=== PATIENT | female | born 1970 | race Caucasian/White ===

== ENCOUNTER → 2018-07-07 09:43 | Outpatient (CLI) | payer OTHER, SELFPAY ==
--- NOTE | 2018-07-07 09:45 | DI.MRI.S_ITS ---
PROCEDURE: MRFOOT LT WO CON INDICATIONS: LEFT FOOT PAIN TECHNIQUE: Noncontrast sagittal T1 spin echo and T2 fast spin echo with fat saturation, long-axis T1 spin echo and T2 fast spin echo with fat saturation, short-axis T1 spin echo and T2 fast spin echo with fat saturation through the forefoot. COMPARISON: [facility], MR, FOOT WITHOUT CONTRAST, 08/17/2013, 20:52. FINDINGS: Image quality: Excellent. Bones and joints: No bone marrow contusions or metatarsal stress fractures. The sesamoid bones appear in expected positions, without internal edema. The previously seen borderline marrow edema involving the lateral hallux sesamoid appears resolved. No metatarsophalangeal joint degeneration. There is first MTP joint effusion, nonspecific No marrow signal changes to suggest erosions. No intraosseous lesions. Soft tissues: The visualized plantar foot muscles demonstrate normal signal and bulk. Visualized flexor and extensor tendons appear intact, without tenosynovitis. The distal insertions of the peroneus brevis and longus tendons appear intact. The principal Lisfranc ligament appears intact. Fluid between the third and fourth metatarsal heads raising possibility of mild intermetatarsal bursitis. There is also trace fluid between the second and third metatarsals heads. Sagittal images demonstrate no evidence for plantar plate tears. IMPRESSION: First MTP joint effusion, possibly slightly increased since prior study. Minimal degenerative marrow signal changes, although recommend correlation with foot radiographs. Possible mild intermetatarsal bursitis between the third and fourth metatarsal heads although recommend close clinical correlation to point tenderness. Trace fluid between the second and third metatarsal heads. Dictated by: Allan Durant M.D. on 07/07/2018 at 11:01 Approved by: Allan Durant M.D. on 07/07/2018 at 11:11
== END ==
PROVIDERS: Visit Provider General Practice
DX: M79.672 Pain in left foot (principal); M25.475 Effusion, left foot
CPT/HCPCS: 73718

== ENCOUNTER 2018-09-14 08:54 | Emergency (ER) | payer OTHER, SELFPAY ==
[2018-09-14 08:59] VITALS: BP 120/75; PULSE 79; RESP 16; TEMP 36.8; O2SAT 95; BMI 33.1
--- NOTE | 2018-09-14 09:03 | DI.RAD.S_ITS ---
PROCEDURE: XR ANKLE LT MIN 3V INDICATIONS: injury pain swelling. TECHNIQUE: 3 views of the ankle were acquired. COMPARISON: None. FINDINGS: Bones: No fractures or dislocations. Ankle mortise is normally aligned. No suspicious bony lesions. Soft tissues: No tibiotalar joint effusion. Achilles tendon appears normal. Lateral soft tissue swelling is noted and ligamentous injury cannot be excluded. IMPRESSION: No fracture. No osseous lesion. If symptoms and/or clinical suspicion for pathology persists, further assessment with repeat radiographs (7-10 days) or advanced imaging (e.g. CT, MRI or bone scan) may be helpful. Dictated by: Trina Khan MD, PhD on 09/14/2018 at 9:18 Approved by: Trina Khan MD, PhD on 09/14/2018 at 9:19
--- NOTE | 2018-09-14 09:59 | ED.LOWEXIN ---
HPI - Extremity Injury (Lower) General Chief Complaint: Extremity Injury, Lower Stated Complaint: right foot pain, glf Time Seen by Provider: 09/14/18 09:32 Source: patient and EMS Mode of arrival: EMS Limitations: no limitations History of Present Illness HPI Narrative: Patient is a 48-year-old female who presents with left ankle pain. She says she slipped on a curb is with yesterday. She has been unable to walk on it since then overall pain has gotten worse. She has pain radiating up into her knee. She actually mostly fell on her right knee. No other injuries. She denies numbness or tingling. 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) Review of Systems Review of Systems GENERAL: Denies chills,fever HEENT: Denies throat pain RESPIRATORY: Denies dyspnea, cough, wheezing CARDIOVASCULAR: Denies chest pain, palpitations GASTROINTESTINAL: Denies nausea, vomiting MUSCULOSKELETAL: SKIN: No rash, no laceration, no pruritus NEUROLOGIC: Denies weakness, dizziness, headache, numbness 8 point review of systems is negative except for those stated above and HPI PFSH Medical History (Updated 09/14/18 @ 10:41 by Vero Taylor DO) Anxiety (Chronic 2012) Chronic back pain (Chronic 2009) Depression (Chronic 2012) Fibromyalgia (Chronic 2012) Foot pain (Chronic 2012) Migraines (Chronic ~1987) Osteoarthritis (Chronic 2012) Pituitary adenoma (Chronic 1996) Rheumatoid arthritis (Chronic 2012) Shoulder pain (Chronic 2009) Anemia (Resolved 2002) Chicken pox (Resolved 1979) Hemorrhoids (Resolved 2007) Measles (Resolved 1984) Surgical History (Updated 07/11/18 @ 15:18 by Yu Lugo) Anesthesia (Resolved) History of elbow surgery (Resolved 2012) History of elbow surgery (Resolved 2013) History of gastric bypass (Resolved 2001) History of surgery (Resolved 2002) History of third molar tooth extraction (Resolved 1989) Status post breast reduction (Resolved) Status post delivery (Resolved 04/26/99) Status post colposcopy (Resolved) Status post loop electrosurgical excision procedure (LEEP) of cervix (Resolved) Social History Smoking Status: Never smoker Social History Smoking Status: Never smoker Exam Initial Vital Signs Initial Vital Signs: Vital Signs Temperature 98.3 F 09/14/18 08:59 Pulse Rate 79 09/14/18 08:59 Respiratory Rate 16 09/14/18 08:59 Blood Pressure 120/75 09/14/18 08:59 Pulse Oximetry 95 09/14/18 08:59 GENERAL: Well-appearing, well-nourished and in no acute distress. CARDIOVASCULAR: peripheral pulses in tact, cap refill <2 sec RESPIRATORY: No respiratory distress, speaks in full sentences without difficulty EXTREMITIES: Normal range of motion, no clubbing or edema. Neurovascularly intact -minimal swelling in the left ankle. She is able to flex her toes but is quite painful neurovascularly intact. She is actually tender in her knee but knee is stable not significantly swelling. NEUROLOGICAL: Cranial nerves II through XII grossly intact. Normal gait and speech. SKIN: Warm, dry, no petechiae, no rashes or lesions. Course Orders Ordered: ED Orders 09/14/18 09:03 XR ankle LT min 3V Stat 09/14/18 10:00 XR knee LT 3V Stat Discontinued Medications Ketorolac Tromethamine (Toradol) 60 mg IM NOW ONE Stop: 09/14/18 10:00 Last Admin: 09/14/18 10:31 Dose: 60 mg Vital Signs - 8 hr 09/14/18 08:59 09/14/18 10:36 09/14/18 10:54 Temperature 98.3 F Pulse Rate 79 72 Pulse Rate [Bilateral Dorsalis Pedis] 78 Respiratory Rate 16 15 Blood Pressure 120/75 Blood Pressure [Left Arm] 112/74 Pulse Oximetry 95 98 MDM - Extremity Injury (Lower) Imaging Data left ankle: Radiologist's impression: PROCEDURE: XR ANKLE LT MIN 3V INDICATIONS: injury pain swelling. TECHNIQUE: 3 views of the ankle were acquired. COMPARISON: None. FINDINGS: Bones: No fractures or dislocations. Ankle mortise is normally aligned. No suspicious bony lesions. Soft tissues: No tibiotalar joint effusion. Achilles tendon appears normal. Lateral soft tissue swelling is noted and ligamentous injury cannot be excluded. IMPRESSION: No fracture. No osseous lesion. If symptoms and/or clinical suspicion for pathology persists, further assessment with repeat radiographs (7-10 days) or advanced imaging (e.g. CT, MRI or bone scan) may be helpful. Dictated by: Trina Khan MD, PhD on 09/14/2018 at 9:18 LEFT KNEE: Radiologist's impression: PROCEDURE: XR KNEE LT 3V INDICATIONS: fall pain fibula. pain in lt knee TECHNIQUE: 3 views of the knee were acquired. COMPARISON: None. FINDINGS: Bones: No fractures or dislocations. No suspicious bony lesions. Soft tissues: No joint effusion. No suspicious soft tissue calcifications. IMPRESSION: No fracture. No osseous lesion. If symptoms and/or clinical suspicion for pathology persists, further assessment with repeat radiographs (7-10 days) or advanced imaging (e.g. CT, MRI or bone scan) may be helpful. Dictated by: Trina Khan MD, PhD on 09/14/2018 at 10:47 MDM Narrative Medical decision making narrative: Patient likely has an ankle sprain. She is given crutches. No sign of fracture in his knee or ankle. He cannot actually take ibuprofen she has a history of gastric bypass Discharge Plan Departure Patient Disposition: Home Clinical Impression: Left ankle sprain Qualifiers: Encounter type: initial encounter Involved ligament of ankle: unspecified ligament Qualified Code(s): S93.402A - Sprain of unspecified ligament of left ankle, initial encounter Discharge Date/Time: 09/14/18 11:17 Interventions: ED Discharge Assessment Last Done: 09/14/18 11:14 Instructions: Ankle Sprain Activity Restrictions/Additional Instructions: *You have been diagnosed with left ankle sprain *What to do: Weight bear as tolerated and use crutches as needed. Increase movement as much as possible, do not overdo *Continue to take medications as directed Motrin 600-800 mg every 8 hours if needed for pain *Follow up with your primary care provider in 2-3 days *Return to ER if you should have increased numbness or tingling or any new, worsening or concerning symptoms Prescriptions: No Action baclofen 10 mg tablet 10 - 20 mg PO TID PRN (Reason: Spasms) RF: 0 bupropion HCl 300 mg tablet extended release 24 hr 300 mg PO QAM RF: 0 Linzess 290 mcg capsule 290 mg PO DAILY RF: 0 Referrals: Kendy Chirinos MD [Primary Care Provider] -
[2018-09-14] MEDS: KETOROLAC 60 MG/2 ML VIAL IM (10:31)
[2018-09-14 10:36] VITALS: PULSE 78
[2018-09-14 10:54] VITALS: BP 112/74; PULSE 72; RESP 15; O2SAT 98
--- NOTE | 2018-09-14 11:11 | PC.NURSE ---
Pt had difficulty w/ crutches, using walker w/ success and improved pain control.
== END 2018-09-14 11:17 | disposition home or self-care (01) ==
PROVIDERS: Emergency Provider Emergency Medicine
DX: S93.402A Sprain of unspecified ligament of left ankle, initial encounter (principal); M25.562 Pain in left knee; W19.XXXA Unspecified fall, initial encounter
CPT/HCPCS: 73562; 73610; 96372; 99282; 99283; J1885

== ENCOUNTER → 2018-11-18 11:35 | Outpatient (CLI) | payer OTHER, SELFPAY ==
--- NOTE | 2018-11-18 | DI.MRI.S_ITS ---
PROCEDURE: MR ANKLE LT WO CON INDICATIONS: Sprain of unspecified ligament of right ankle TECHNIQUE: Noncontrast sagittal T1 spin echo and T2 fast spin echo with fat saturation, axial proton density fast spin echo and T2 fast spin echo with fat saturation, coronal T1 spin echo and T2 fast spin echo with fat saturation through the ankle/hindfoot. COMPARISON: None. FINDINGS: Image quality: Excellent. Bones and joints: No discrete fracture line. Marrow edema present within the head and neck of the talus. No hindfoot coalitions. No osteochondral injuries of the talar dome. No pathologic joint effusions. Medial structures: The posterior tibialis, flexor digitorum longus, and flexor hallucis longus tendons are intact. Mild fluid adjacent to the posterior tibialis tendon in keeping with low-grade tenosynovitis. The posterior tibial neurovascular bundle appears normal within the tarsal tunnel, without extrinsic mass effect. The deep layer (anterior and posterior tibiotalar ligaments) and superficial layer (tibionavicular, tibiospring, and tibiocalcaneal ligaments) of the deltoid ligament appear normal. The spring ligament components (superomedial calcaneonavicular, medioplantar oblique calcaneonavicular, and inferoplantar longitudinal ligaments) are intact. Lateral structures: The anterior talofibular is thickened although grossly intact. This suggests partial rupture/sprain. The calcaneofibular, and posterior talofibular ligaments appear intact. More superiorly, the anterior and posterior tibiofibular ligaments appear intact, as is the intermalleolar ligament. The tibiofibular syndesmosis is normal in width at 2 mm or less. The peroneus longus and brevis tendons demonstrate normal location and morphology. There is peroneal tenosynovitis. Adjacent bony peroneal tubercle and retrotrochlear prominence are normal in size. The sinus tarsi demonstrates normal fatty signal, without edema, fibrosis, or cyst formation. Visualized sinus tarsi components (cervical ligament, interosseous talocalcaneal ligament, roots of the inferior extensor retinaculum) appear normal. The calcaneonavicular and calcaneocuboid components of the bifurcate ligament appear intact. The dorsal calcaneocuboid ligament appears intact. Anterior structures: The tibialis anterior, extensor hallucis longus, and extensor digitorum longus tendons appear intact. The dorsal talonavicular ligament appears intact. Posterior and plantar structures: Achilles tendon is intact. Medial and lateral bands of the plantar fascia are of normal thickness. No abductor digiti quinti muscle atrophy to suggest Leon neuropathy. IMPRESSION: Sprain of the anterior talofibular ligament, with overlying soft tissue edema. This could be subacute versus acute. Marrow edema within the head and neck of the talus, possibly marrow contusion versus reactive to subtalar joint degeneration. Please correlate clinically. Mild posterior tibialis and peroneal tenosynovitis. Dictated by: Allan Durant M.D. on 11/18/2018 at 13:55 Approved by: Allan Durant M.D. on 11/18/2018 at 14:00
== END ==
PROVIDERS: PCP General Practice; Visit Provider General Practice
DX: S93.492A Sprain of other ligament of left ankle, initial encounter (principal); M65.872 Other synovitis and tenosynovitis, left ankle and foot; R60.0 Localized edema
CPT/HCPCS: 73721